=== PATIENT | female | born 1975 | race Caucasian/White ===

== ENCOUNTER 2018-06-07 15:04 | Emergency (ER) | payer MEDICAID, OTHER ==
[~2018-06-07] VITALS: Ht 167.6 cm; Wt 61.2 kg
[2018-06-07 15:22] VITALS: BP 153/74
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
[2018-06-07 17:30] VITALS: BP 150/87
--- NOTE | 2018-06-07 18:09 | NUR ---
Patient given written and verbal discharge instructions and verbalizes understanding. Patient is awake, alert and oriented. Ambulatory with steady gait. Given list of available shelters in surrounding areas. Bus pass, food bag, hygiene bag provided. Rx of albuterol inhalation aerosol, Metformin, Risperidone, Pravastatin given. Pt verbalized understanding of prescribed medication.
== END 2018-06-07 18:09 | disposition home or self-care (01) ==
LOC: MED 15:04
DX: F20.9 Schizophrenia, unspecified (principal); R03.0 Elevated blood-pressure reading, without diagnosis of hypertension; E11.9 Type 2 diabetes mellitus without complications; J44.9 Chronic obstructive pulmonary disease, unspecified; M54.5 Low back pain; M25.512 Pain in left shoulder; M25.511 Pain in right shoulder; F15.90 Other stimulant use, unspecified, uncomplicated; F17.210 Nicotine dependence, cigarettes, uncomplicated; Z71.6 Tobacco abuse counseling
CPT/HCPCS: 82948; 99283